=== PATIENT | female | born 2000 | race Caucasian/White ===

== ENCOUNTER → 2023-10-10 07:25 | Outpatient (REF) | payer OTHER, SELFPAY | LOC: EMG 07:25 | PROVIDERS: ATTENDING PHYSICIAN Orthopaedic Surgery; FAMILY PHYSICIAN Family Medicine | DX: R20.0 Anesthesia of skin (principal) | CPT/HCPCS: 95886; 95910 ==

== ENCOUNTER → 2023-10-12 17:49 | Outpatient (REF) | payer OTHER, SELFPAY | LOC: MRI 17:49 | PROVIDERS: ATTENDING PHYSICIAN Family Medicine | DX: D33.2 Benign neoplasm of brain, unspecified (principal) | CPT/HCPCS: 70553; A9575 ==